=== PATIENT | male | born 1985 | race Caucasian/White ===

== ENCOUNTER 2017-01-25 15:46 | Emergency (ER) | payer SELFPAY ==
[~2017-01-25] VITALS: Ht 175.3 cm; Wt 80.4 kg
[~2017-01-25 15:46] MED LIST: LIBRIUM25 MG PO; NARCAN4 MG NS; NEBULIZER MC; PREDNISONE10 MG PO; PROAIR RESPICL90 MCG IH; PROVENTIL,2.5 MG/3 M IH; SERTRALINE HCL50 MG PO; TRAMADOL HCL50 MG PO; VENTOLIN HFA18 GM IH; ZESTORETIC 20-1 EAC1 NG
[2017-01-25 16:28] LABS: HEMATOCRIT 47.1 % (38.0-50.0); MCH 34.5 PG (29.0-34.0); MCV 98.5 FL (86-99); MEAN PLAT.VOLUME 9.3 uM^3 (9.0-12.4); PLATELET COUNT 235 K/uL (156-360); RBC DIS.WIDTH-CV 13.2 % (11.8-14.6); RBC DIS.WIDTH-SD 48.6 % (39-53); RED BLOOD COUNT 4.78 M/uL (4.00-5.50); WHITE BLOOD COUNT 6.9 K/uL (4.1-10.2)
[2017-01-25 16:38] LABS: CHLORIDE 99 mEq/L (99-109); SODIUM 141 mEq/L (136-147)
[2017-01-25 16:39] LABS: GLUCOSE 78 mg/dL (70-99)
[2017-01-25 16:41] LABS: ANION GAP 23 MEQ/L (2-14)
[2017-01-25 16:43] LABS: GFR ESTIMATE (CALCULATED) > 59 mL/min/
[2017-01-25 16:44] LABS: UREA NITROGEN (BUN) 8 mg/dL (9-23)
[2017-01-25 16:47] LABS: TROP-I INTERPRETATION NEGATIVE; TROPONIN-I 0.01 ng/mL (0.0-0.30)
[2017-01-25 17:27] LABS: D-DIMER ELISA 0.93 mg/L FEU (< 0.57)
[2017-01-25 17:30] LABS: TOTAL BILIRUBIN 0.8 mg/dL (0.0-1.0)
[2017-01-25 17:31] LABS: ALKALINE PHOSPHATASE 74 IU/L (3-129); SERUM ETHYL ALCOHOL 331 mg/dL
[2017-01-25 17:34] LABS: DIRECT BILIRUBIN 0.3 mg/dL (0.0-0.3)
[2017-01-25 17:35] LABS: LIPASE 69 U/L (1.0-51.0)
[2017-01-25 21:07] VITALS: BP 146/92
== END 2017-01-25 21:08 | disposition home or self-care (01) ==
LOC: EME 15:46
DX: F10.10 Alcohol abuse, uncomplicated (principal); Y90.8 Blood alcohol level of 240 mg/100 ml or more; R07.9 Chest pain, unspecified; R06.00 Dyspnea, unspecified; R05 Cough; R79.1 Abnormal coagulation profile; F17.200 Nicotine dependence, unspecified, uncomplicated
CPT/HCPCS: 71020; 71275; 80048; 80076; 83690; 84484; 85027; 85379; 93005; 99281; 99285; G0480; J7030; Q0177